=== PATIENT | male | born 1990 | race African-American/Black ===

== ENCOUNTER 2017-02-17 10:33 | Emergency (ER) | payer OTHER ==
[~2017-02-17] VITALS: Ht 180.3 cm; Wt 81.7 kg
[2017-02-17 10:34] VITALS: BP 124/78
[2017-02-17] MEDS ORDERED: OXYCODONE HCL 55 MG PO (11:10)
== END 2017-02-17 11:19 | disposition home or self-care (01) ==
LOC: ER 10:33
DX: S62.525A Nondisplaced fracture of distal phalanx of left thumb, initial encounter for closed fracture (principal); W23.0XXA Caught, crushed, jammed, or pinched between moving objects, initial encounter; Y93.89 Activity, other specified; Y92.89 Other specified places as the place of occurrence of the external cause; Y99.8 Other external cause status

== ENCOUNTER 2017-02-19 17:53 | Emergency (ER) | payer OTHER ==
[~2017-02-19] VITALS: Ht 172.7 cm; Wt 68.0 kg
[~2017-02-19 17:53] MED LIST: OXYCODONE HCL 55 MG PO
== END 2017-02-19 18:50 | disposition home or self-care (01) ==
LOC: ER 17:53
DX: S62.522A Displaced fracture of distal phalanx of left thumb, initial encounter for closed fracture (principal); X58.XXXA Exposure to other specified factors, initial encounter; Y93.89 Activity, other specified; Y92.89 Other specified places as the place of occurrence of the external cause; Y99.8 Other external cause status

== ENCOUNTER 2021-03-25 20:20 | Emergency (ER) | payer OTHER | END 2021-03-25 20:29 | disposition left against medical advice (07) | LOC: ER 20:20 | DX: Z01.84 Encounter for antibody response examination (principal); Z53.21 Procedure and treatment not carried out due to patient leaving prior to being seen by health care provider ==